=== PATIENT | female | born 1975 | race American Indian/Alaskan Native ===

== ENCOUNTER 2017-03-24 09:26 | Emergency (ER) | payer BC ==
[2017-03-24 09:42] VITALS: BP 103/65; PULSE 79; RESP 16; TEMP 98.9; O2SAT 99
[2017-03-24] MEDS ORDERED: Sodium Chloride 0.9% 1,000 ML IV STA (09:50)
[2017-03-24 10:13] LABS: ADD MANUAL DIFF? NO
[2017-03-24 10:17] LABS: BASO # 0.01 K/mm3 (0.0-2.0); BASO % 0.3 % (0.0-3.0); EOS % 1.3 % (1.5-5.0); GRAN # 1.45 (1.4-6.5); GRAN % 47.3 % (50.0-68.0); HEMATOCRIT 37.6 % (36.0-48.0); LYMPH # 1.2 (1.2-3.4); LYMPH % 40.4 % (22.0-35.0); MEAN CELL VOLUME 91.7 fL (80.0-105.0); MEAN CORPUSCULAR HEMOGLOBIN 30.2 pg (25.0-35.0); MEAN PLATELET VOLUME 9.4 fl (7.0-11.0); MONO # 0.3 (0.1-0.6); MONO % 10.7 % (1.0-6.0); PLATELET COUNT 180 10^3/uL (120.0-450.0); RED CELL DISTRIBUTION WIDTH 13.1 % (11.5-14.5); WHITE BLOOD COUNT 3.1 10^3/ul (4.5-11.0)
--- NOTE | 2017-03-24 10:20 | ED PDOC ---
Arrival/HPI - General Chief Complaint: Abdominal Pain Time Seen by Provider: 03/24/17 09:48 Historian: Patient - History of Present Illness Narrative History of Present Illness (Text): 03/24/17 10:18 42yo female with no PMHx who present complaining of constant sharp RUQ/ epigastric abdominal pain x 4days. states pain is usually worse postprandial. Did not take any medication. Denies melena, hematmesis, nausea, vomiting, diarrhea, constipation, urinary symptoms, fever, chills, any other complaint. Past Medical History - Provider Review Nursing Documentation Reviewed: Yes - Psychiatric Hx Psychophysiologic Disorder: No Hx Substance Use: No - Surgical History Hx Section: Yes Family/Social History - Physician Review Nursing Documentation Reviewed: Yes Family/Social History: Unknown Family HX Smoking Status: Never Smoked Hx Alcohol Use: No Hx Substance Use: No Allergies/Home Meds Allergies/Adverse Reactions: Allergies No Known Allergies Allergy (Verified 03/24/17 09:38) Review of Systems - Physician Review All systems were reviewed & negative as marked: Yes - Review of Systems Constitutional: Normal Eyes: Normal ENT: Normal Respiratory: Normal Cardiovascular: Normal Gastrointestinal: Abdominal Pain. absent: Constipation, Diarrhea, Nausea, Vomiting, Hematochezia, Hematemesis Genitourinary Female: Normal Musculoskeletal: Normal Skin: Normal Neurological: Normal Endocrine: Normal Hemo/Lymphatic: Normal Psychiatric: Normal Physical Exam Vital Signs Reviewed: Yes Vital Signs Temp Pulse Resp BP Pulse Ox 03/24/17 09:41 98.9 F 79 16 103/65 99 Temperature: Afebrile Blood Pressure: Normal Pulse: Regular Respiratory Rate: Normal Appearance: Positive for: Well-Appearing, Non-Toxic, Comfortable Pain Distress: None Mental Status: Positive for: Alert and Oriented X 3 - Systems Exam Head: Present: Atraumatic, Normocephalic Pupils: Present: PERRL Extroacular Muscles: Present: EOMI Conjunctiva: Present: Normal Mouth: Present: Moist Mucous Membranes Neck: Present: Normal Range of Motion Respiratory/Chest: Present: Clear to Auscultation, Good Air Exchange. No: Respiratory Distress, Accessory Muscle Use Cardiovascular: Present: Regular Rate and Rhythm, Normal S1, S2. No: Murmurs Abdomen: Present: Tenderness (Epigastric tenderness), Normal Bowel Sounds ( Hyperactive on the epigastric region), Other (Soft). No: Distention, Peritoneal Signs, Rebound, Guarding, McBurney's Point Tender, Rovsing's Sign Present Back: Present: Normal Inspection Upper Extremity: Present: Normal Inspection. No: Cyanosis, Edema Lower Extremity: Present: Normal Inspection. No: Edema Neurological: Present: GCS=15, CN II-XII Intact, Speech Normal Skin: Present: Warm, Dry, Normal Color. No: Rashes Psychiatric: Present: Alert, Oriented x 3, Normal Insight, Normal Concentration Medical Decision Making ED Course and Treatment: 03/24/17 19:02 PT presented for stated history. On revaluation her pain improved with GI cock tail. Lab was unremarkable. She have UTI and was given Macrobid. Pt states she is currently under a lot of stress from her job and home. Gallbladder and panaceas US was negative. Result was DW the pt. she was DC home with Protonix and macrobid. Referred to her PMD/GI. TRT ED for any new or worsening symptoms. - Lab Interpretations Lab Results: 03/24/17 10:00 03/24/17 10:00 Lab Results 03/24/17 11:00: Urine Color Yellow, Urine Appearance Clear, Urine pH 6.0, Ur Specific [place] 1.025, Urine Protein 30 H, Urine Glucose (UA) Negative, Urine Ketones Negative, Urine Blood Small H, Urine Nitrate Positive H, Urine Bilirubin Negative, Urine Urobilinogen 1.0 H, Ur Leukocyte Esterase Moderate H, Urine RBC 5 - 10, Urine WBC 25 - 30, Ur Epithelial Cells 6 - 8, Amorphous Sediment Few, Urine Bacteria Many, Hyaline Casts 0 - 2, Urine Other [place] 03/24/17 10:00: Sodium 140, Potassium 3.8, Chloride 105, Carbon Dioxide 25, Anion Gap 14, BUN 10, Creatinine 0.9, Est GFR ( Amer) > 60, Est GFR (Non- Af Amer) > 60, Random Glucose 77, Calcium 8.8, Total Bilirubin 0.7, AST 22, ALT 22, Alkaline Phosphatase 42, Total Protein 7.5, Albumin 4.2, Globulin 3.3, Albumin/Globulin Ratio 1.3, Lipase 31 03/24/17 10:00: PT 11.4, INR 1.06, APTT 28.6 03/24/17 10:00: WBC 3.1 L, RBC 4.10, Hgb 12.4, Hct 37.6, MCV 91.7, MCH 30.2, MCHC 33.0, RDW 13.1, Plt Count 180, MPV 9.4, Gran % 47.3 L, Lymph % (Auto) 40.4 H, [place] % (Auto) 10.7 H, Eos % (Auto) 1.3 L, Baso % (Auto) 0.3, Gran # 1.45, Lymph # 1.2, [place] # 0.3, Eos # 0.0, Baso # 0.01 - RAD Interpretation Radiology Orders: 03/24/17 09:51 GALLBLADDER & PANCREAS [US] Stat - Medication Orders Current Medication Orders: Discontinued Medications Al Hydrox/Mg Hydrox/Simethicone (Maalox Plus 30 Ml) 30 ml PO STAT STA Stop: 03/24/17 11:36 Last Admin: 03/24/17 11:58 Dose: 30 ml Belladonna/Phenobarbital ( Elixir) 5 ml PO STAT STA Stop: 03/24/17 11:36 Last Admin: 03/24/17 11:57 Dose: 5 ml Famotidine (Pepcid) 20 mg IVP STAT STA Stop: 03/24/17 09:51 Last Admin: 03/24/17 10:09 Dose: 20 mg Sodium Chloride (Sodium Chloride 0.9%) 1,000 mls @ 1,000 mls/hr IV .Q1H STA Stop: 03/24/17 10:49 Last Admin: 03/24/17 10:09 Dose: 1,000 mls/hr Ketorolac Tromethamine (Toradol) 30 mg IVP STAT STA Stop: 03/24/17 09:53 Last Admin: 03/24/17 10:08 Dose: 30 mg Lidocaine HCl (Lidocaine 2% Viscous) 15 ml PO ONCE STA Stop: 03/24/17 11:36 Last Admin: 03/24/17 12:05 Dose: Not Given Non-Admin Reason: Patient Refused Nitrofurantoin Macrocrystals (Macrobid) 100 mg PO ONCE STA Stop: 03/24/17 11:35 Last Admin: 03/24/17 11:57 Dose: 100 mg Disposition/Present on Arrival - Present on Arrival Any Indicators Present on Arrival: No History of DVT/PE: No History of Uncontrolled Diabetes: No Urinary Catheter: No History of Decub. Ulcer: No History Surgical Site Infection Following: None - Disposition Have Diagnosis and Disposition been Completed?: Yes Diagnosis: UTI (urinary tract infection), Gastritis Disposition: HOME/ ROUTINE Disposition Time: 11:40 Patient Plan: Discharge Condition: STABLE Discharge Instructions (ExitCare): Gastritis (ED), Urinary Tract Infection in Women (ED) Additional Instructions: Avoid acidic foods Follow up with your Doctor/Sander Operator Return to ED for any new or worsening symptoms Prescriptions: Nitrofurantoin Macrocrystals [Macrobid] 100 mg PO BID #14 cap Pantoprazole Sodium [Protonix] 40 mg PO DAILY #15 tablet.dr Referrals: Melisa Riggs MD [Primary Care Provider] - Follow up with primary Robert Rose MD [Medical Doctor] - Follow up with primary Forms: WORK NOTE
[2017-03-24 10:26] LABS: ALB/GLOB RATIO 1.3 (1.1-1.8); ALKALINE PHOSPHATASE 42 U/L (38-133); ALT/SGPT 22 U/L (7-56); AST/SGOT 22 U/L (15-39); BILIRUBIN,TOTAL 0.7 mg/dL (0.2-1.3); BLOOD UREA NITROGEN 10 mg/dL (7-21); CALCIUM 8.8 mg/dL (8.4-10.5); CARBON DIOXIDE 25 mmol/L (21-33); CHLORIDE 105 mmol/L (98-107); GFR AFRICAN-AMERICAN > 60; GLUCOSE,RANDOM 77 mg/dL (70-110); LIPASE 31 U/L (23-300); POTASSIUM 3.8 mmol/L (3.6-5.0); SODIUM 140 mmol/L (132-148); TOTAL PROTEIN 7.5 g/dL (5.8-8.3)
[2017-03-24 10:38] LABS: INR 1.06 (0.93-1.08); PARTIAL THROMBOPLASTIN TIME 28.6 Seconds (23.7-30.8)
--- NOTE | 2017-03-24 10:40 | US ---
HISTORY: Epigastric/RUQ pain COMPARISON: None. TECHNIQUE: Sonographic evaluation of the right upper quadrant of the abdomen. FINDINGS: LIVER: Measures 12.5 cm in length. Normal echogenicity of the liver parenchyma. No mass. No intrahepatic bile duct dilatation. GALLBLADDER: Unremarkable. No gallstones. COMMON BILE DUCT: Measures 4.7 mm. No stones. No dilatation. PANCREAS: Unremarkable as visualized. No mass. No ductal dilatation. RIGHT KIDNEY: Measures 9.3 cm in length. Normal echogenicity. No calculus or solid mass. There is mild fullness in the renal pelvis. AORTA: No aneurysmal dilatation. IVC: Unremarkable. OTHER FINDINGS: None . IMPRESSION: No evidence of cholelithiasis or biliary dilatation. No nephrolithiasis
[2017-03-24 11:19] LABS: URINE BILIRUBIN NEGATIVE (NEGATIVE); URINE BLOOD SMALL (NEGATIVE); URINE GLUCOSE (UA) NEGATIVE (NEGATIVE); URINE KETONE NEGATIVE (NEGATIVE); URINE LEUKOCYTE ESTERASE MODERATE Leu/uL (NEGATIVE); URINE PROTEIN 30 mg/dL (<30 mg/dL)
[2017-03-24 11:22] LABS: URINE APPEARANCE CLEAR (CLEAR); URINE COLOR YELLOW (YELLOW)
[2017-03-24] MEDS ORDERED: Alum-Mag Hydrox-Simethicone Susp (30 mL) PO STA (11:35)
[2017-03-24] MEDS ORDERED: Atrop/Hyosc/Scopal/PB Elixir (120 ml) PO STA (11:35)
[2017-03-24 11:44] LABS: URINE BACTERIA MANY (NEG); URINE WBC 25 - 30 /hpf (0-6)
[2017-03-24 11:45] LABS: URINE AMORPHOUS SEDIMENT FEW
== END 2017-03-24 12:30 | disposition home or self-care (01) ==
LOC: ED 09:26
DX: N39.0 Urinary tract infection, site not specified (principal); K29.70 Gastritis, unspecified, without bleeding
CPT/HCPCS: 76705; 80053; 81001; 83690; 85025; 85610; 85730; 87086; 87181; 96361; 96374; 96375; 99283; J1885; J7040

== ENCOUNTER 2017-03-25 14:18 | Inpatient (IN) | payer BC ==
[2017-03-25] MEDS ORDERED: Iohexol 240 (50 ml) ONE (14:36)
--- NOTE | 2017-03-25 14:53 | ED PDOC ---
Arrival/HPI - General Chief Complaint: Abdominal Pain Time Seen by Provider: 03/25/17 14:25 Historian: Patient - History of Present Illness Narrative History of Present Illness (Text): 03/25/17 14:49 42yo female referred to ED by Dr. Riggs for admission. Patient was seen here yesterday for epigastric abdominal pain and was treated for UTI . She reports that she is still having same epigastric pain. Saw Dr. Riggs today and was referred to ED for admission. Patient denies nausea, vomiting, diarrhea, constipation, melena, hematemesis, fever, chills, chest pain, any other complaint. Past Medical History - Provider Review Nursing Documentation Reviewed: Yes - Gastrointestinal Hx Gastrointestinal Disorders: Yes Hx Gastritis: Yes - Psychiatric Hx Psychophysiologic Disorder: No Hx Substance Use: No - Surgical History Hx Section: Yes Family/Social History - Physician Review Nursing Documentation Reviewed: Yes Family/Social History: Unknown Family HX Smoking Status: Never Smoked Hx Alcohol Use: No Hx Substance Use: No Allergies/Home Meds Allergies/Adverse Reactions: Allergies No Known Allergies Allergy (Verified 03/24/17 09:38) Review of Systems - Physician Review All systems were reviewed & negative as marked: Yes - Review of Systems Constitutional: Normal Eyes: Normal ENT: Normal Respiratory: Normal Cardiovascular: Normal Gastrointestinal: Abdominal Pain. absent: Constipation, Diarrhea, Nausea, Vomiting, Hematochezia, Hematemesis Genitourinary Female: Normal Musculoskeletal: Normal Skin: Normal Neurological: Normal Endocrine: Normal Hemo/Lymphatic: Normal Psychiatric: Normal Physical Exam Vital Signs Reviewed: Yes Vital Signs Temp Pulse Resp BP Pulse Ox 03/25/17 17:05 72 17 110/61 99 03/25/17 16:01 70 18 100/71 100 03/25/17 15:04 69 18 98/58 L 100 03/25/17 14:28 98.0 F 74 18 89/53 L 100 Temperature: Afebrile Blood Pressure: Normal Pulse: Regular Respiratory Rate: Normal Appearance: Positive for: Well-Appearing, Non-Toxic, Comfortable Pain Distress: None Mental Status: Positive for: Alert and Oriented X 3 - Systems Exam Head: Present: Atraumatic, Normocephalic Pupils: Present: PERRL Extroacular Muscles: Present: EOMI Conjunctiva: Present: Normal Mouth: Present: Moist Mucous Membranes Neck: Present: Normal Range of Motion Respiratory/Chest: Present: Clear to Auscultation, Good Air Exchange. No: Respiratory Distress, Accessory Muscle Use Cardiovascular: Present: Regular Rate and Rhythm, Normal S1, S2. No: Murmurs Abdomen: Present: Tenderness, Normal Bowel Sounds, Other (Soft). No: Distention , Peritoneal Signs, Rebound, Guarding, McBurney's Point Tender, Rovsing's Sign Present Back: Present: Normal Inspection Upper Extremity: Present: Normal Inspection. No: Cyanosis, Edema Lower Extremity: Present: Normal Inspection. No: Edema Neurological: Present: GCS=15, CN II-XII Intact, Speech Normal Skin: Present: Warm, Dry, Normal Color. No: Rashes Psychiatric: Present: Alert, Oriented x 3, Normal Insight, Normal Concentration Medical Decision Making ED Course and Treatment: 03/25/17 20:28 Pt present to ED for stated history. Her pain improved in ED with medication. Lab was unremarkable. PT have UTI, like was noted yesteday. Susan ordered Abdominal CT 03/25/17 20:30 IMPRESSION: 3.7 cm right adnexal cystic structure, possibly ovarian cyst. Small adnexal and pelvic free fluid. Correlate clinically and recommend further evaluation with pelvic ultrasound. IUD. 6 mm nonobstructing left renal calculus. Additional tiny bilateral nonobstructing calculi. Moderate diffuse constipation. Result was DW the pt. Pt was placed on OBS for intractable abdominal pain and UTI. - Lab Interpretations Lab Results: 03/25/17 14:50 03/25/17 14:50 Lab Results 03/25/17 15:55: Urine Color Light yellow, Urine Appearance Clear, Urine pH 7.5, Ur Specific [place] 1.010, Urine Protein Negative, Urine Glucose (UA) Negative, Urine Ketones Negative, Urine Blood Large H, Urine Nitrate Positive H, Urine Bilirubin Negative, Urine Urobilinogen 0.2, Ur Leukocyte Esterase Small H, Urine RBC 5 - 10, Urine WBC 2 - 5, Ur Epithelial Cells 1 - 3, Urine Bacteria Large 03/25/17 14:50: Sodium 140, Potassium 3.9, Chloride 104, Carbon Dioxide 27, Anion Gap 13, BUN 12, Creatinine 0.8, Est GFR ( Amer) > 60, Est GFR (Non- Af Amer) > 60, Random Glucose 67 L, Calcium 9.1, Total Bilirubin 0.6, AST 30, ALT 20, Alkaline Phosphatase 41, Lactate Dehydrogenase 363, Total Creatine Kinase 77, Troponin I < 0.01, Total Protein 7.4, Albumin 4.1, Globulin 3.3, Albumin/Globulin Ratio 1.2, Lipase 41 03/25/17 14:50: PT 11.0, INR 1.02, APTT 27.1 03/25/17 14:50: WBC 4.9 D, RBC 4.10, Hgb 12.3, Hct 37.6, MCV 91.7, MCH 30.0, MCHC 32.7, RDW 13.0, Plt Count 193, MPV 9.6, Gran % 60.7, Lymph % (Auto) 31.1, [place] % (Auto) 7.2 H, Eos % (Auto) 0.8 L, Baso % (Auto) 0.2, Gran # 2.97, Lymph # 1.5, [place] # 0.4, Eos # 0.0, Baso # 0.01 - RAD Interpretation Radiology Orders: 03/25/17 14:32 ABD PELVIS PO & IV CONTRAST [CT] Stat - Medication Orders Current Medication Orders: Hydromorphone HCl (Dilaudid) 0.5 mg IVP Q4H PRN PRN Reason: Pain, Mild (1-3) Ceftriaxone Sodium (Rocephin 1 Gram Ivpb) 100 mls @ 100 mls/hr IVPB DAILY DESTINY PRN Reason: Protocol Pantoprazole Sodium (Protonix Inj) 40 mg IVP DAILY DESTINY Discontinued Medications Famotidine (Pepcid) 20 mg IVP STAT STA Stop: 03/25/17 14:57 Last Admin: 03/25/17 15:09 Dose: 20 mg Hydromorphone HCl (Dilaudid) 1 mg IVP STAT STA Stop: 03/25/17 15:59 Last Admin: 03/25/17 17:07 Dose: 1 mg Levofloxacin/Dextrose (Levaquin 500mg) 500 mg in 100 mls @ 100 mls/hr IVPB STAT STA Stop: 03/25/17 20:15 Iohexol (Omnipaque 240 (50 Ml)) Confirm Administered Dose 50 ml .ROUTE .[facility] ONE Stop: 03/25/17 14:37 Iohexol (Omnipaque 350 100 Ml) Confirm Administered Dose 350 mg .ROUTE .[facility] ONE Stop: 03/25/17 16:33 Morphine Sulfate (Morphine) 4 mg IVP STAT STA Stop: 03/25/17 14:57 Last Admin: 03/25/17 15:10 Dose: 4 mg Disposition/Present on Arrival - Present on Arrival Any Indicators Present on Arrival: No History of DVT/PE: No History of Uncontrolled Diabetes: No Urinary Catheter: No History of Decub. Ulcer: No History Surgical Site Infection Following: None - Disposition Have Diagnosis and Disposition been Completed?: Yes Diagnosis: Renal colic, UTI (urinary tract infection), Abdominal pain Disposition: HOSPITALIZED Disposition Time: 18:50 Patient Problems: Current Active Problems Problem Status Onset Abdominal pain Acute Renal colic Acute UTI (urinary tract infection) Acute Condition: FAIR
[2017-03-25] MEDS ORDERED: Morphine 4 mg/ml ISec IVP STA (14:56)
[2017-03-25 15:06] LABS: ADD MANUAL DIFF? NO
[2017-03-25 15:10] LABS: BASO # 0.01 K/mm3 (0.0-2.0); BASO % 0.2 % (0.0-3.0); EOS % 0.8 % (1.5-5.0); GRAN # 2.97 (1.4-6.5); GRAN % 60.7 % (50.0-68.0); HEMATOCRIT 37.6 % (36.0-48.0); LYMPH # 1.5 (1.2-3.4); LYMPH % 31.1 % (22.0-35.0); MEAN CELL VOLUME 91.7 fL (80.0-105.0); MEAN CORPUSCULAR HGB CONC 32.7 g/dl (31.0-37.0); MEAN PLATELET VOLUME 9.6 fl (7.0-11.0); MONO # 0.4 (0.1-0.6); MONO % 7.2 % (1.0-6.0); PLATELET COUNT 193 10^3/uL (120.0-450.0); WHITE BLOOD COUNT 4.9 10^3/ul (4.5-11.0)
[2017-03-25 15:19] LABS: INR 1.02 (0.93-1.08); PARTIAL THROMBOPLASTIN TIME 27.1 Seconds (23.7-30.8)
[2017-03-25 15:25] LABS: ALB/GLOB RATIO 1.2 (1.1-1.8); ALKALINE PHOSPHATASE 41 U/L (38-133); ALT/SGPT 20 U/L (7-56); AST/SGOT 30 U/L (15-39); BILIRUBIN,TOTAL 0.6 mg/dL (0.2-1.3); BLOOD UREA NITROGEN 12 mg/dL (7-21); CALCIUM 9.1 mg/dL (8.4-10.5); CARBON DIOXIDE 27 mmol/L (21-33); CHLORIDE 104 mmol/L (98-107); GFR AFRICAN-AMERICAN > 60; GLUCOSE,RANDOM 67 mg/dL (70-110); LIPASE 41 U/L (23-300); POTASSIUM 3.9 mmol/L (3.6-5.0); SODIUM 140 mmol/L (132-148); TOTAL PROTEIN 7.4 g/dL (5.8-8.3)
[2017-03-25 15:37] LABS: TROPONIN I < 0.01 ng/mL
[2017-03-25] MEDS ORDERED: HYDROmorphone 1 mg/ml ISec IVP STA (15:58)
[2017-03-25] MEDS ORDERED: Iohexol 350 MG/100 ML VIAL ONE (16:32)
[2017-03-25 16:36] LABS: PH,URINE 7.5 (4.7-8.0); URINE BILIRUBIN NEGATIVE (NEGATIVE); URINE BLOOD LARGE (NEGATIVE); URINE GLUCOSE (UA) NEGATIVE (NEGATIVE); URINE KETONE NEGATIVE (NEGATIVE); URINE LEUKOCYTE ESTERASE SMALL Leu/uL (NEGATIVE); URINE PROTEIN NEGATIVE mg/dL (<30 mg/dL); URINE UROBILINOGEN 0.2 E.U./dL (<1 E.U./dL)
[2017-03-25 16:42] LABS: URINE APPEARANCE CLEAR (CLEAR); URINE COLOR LIGHT YELLOW (YELLOW)
[2017-03-25 17:15] LABS: URINE BACTERIA LARGE (NEG)
--- NOTE | 2017-03-25 18:25 | CT ---
PROCEDURE: CT Abdomen and Pelvis with oral and IV contrast. HISTORY: abdominal pain COMPARISON: Gallbladder ultrasound performed 03/24/17 TECHNIQUE: Contiguous axial images of the abdomen and pelvis. Oral and IV contrast was administered. Coronal and Sagittal reformats generated and reviewed. Contrast dose: 100 mL Omnipaque 350 Radiation dose: Total exam DLP = 328.17 mGy-cm. This CT exam was performed using one or more of the following dose reduction techniques: Automated exposure control, adjustment of the mA and/or kV according to patient size, and/or use of iterative reconstruction technique. FINDINGS: LOWER THORAX: No visible consolidation, pleural effusion, or pneumothorax. LIVER: Unremarkable. GALLBLADDER AND BILE DUCTS: Unremarkable. PANCREAS: Unremarkable. SPLEEN: Unremarkable. ADRENALS: Unremarkable. KIDNEYS AND URETERS: The kidneys enhance symmetrically. No hydronephrosis or obstructing renal calculus. Nonobstructing 6 mm left renal calculus. Additional tiny bilateral nonobstructing calculi. BLADDER: Distended urinary bladder appears grossly unremarkable. REPRODUCTIVE: Uterus is present. IUD. 3.7 cm cystic structure in the right at adnexa presumed to reflect a large ovarian cyst. Evidence of small adnexal fluid. APPENDIX: The appendix is not definitively seen. No secondary signs of acute appendicitis. BOWEL: The stomach is incompletely distended. The bowel loops appear within normal limits of caliber without evidence of intestinal obstruction. Moderate diffuse constipation. PERITONEUM: Small pelvic free fluid. No definite free air. LYMPH NODES: No bulky lymphadenopathy identified. VASCULATURE: No aortic aneurysm. BONES: No acute osseous abnormality is detected. OTHER FINDINGS: None. IMPRESSION: 3.7 cm right adnexal cystic structure, possibly ovarian cyst. Small adnexal and pelvic free fluid. Correlate clinically and recommend further evaluation with pelvic ultrasound. IUD. 6 mm nonobstructing left renal calculus. Additional tiny bilateral nonobstructing calculi. Moderate diffuse constipation.
[2017-03-25] MEDS ORDERED: levoFLOXacin 500 mg in D5W 500 MG/100 ML BAG IVPB STA (19:16)
[2017-03-25] MEDS: Sodium Chloride 0.9% 1,000 ML IV SCH (20:41)
[2017-03-26] MEDS: Sodium Chloride 0.9% 1,000 ML IV SCH (06:13)
[2017-03-26] MEDS: HYDROmorphone 0.5 mg/0.5 ml ISec IVP PRN ×5 (06:16→22:44)
[2017-03-26] MEDS: cefTRIAXone 1 gm 1 GM/100 ML BAG IVPB SCH (10:11)
--- NOTE | 2017-03-26 19:55 | HP ---
CHIEF COMPLAINT: Abdominal pain in epigastric area. HISTORY OF PRESENT ILLNESS: This is a 42-year-old female, my private patient, was seen in the Emergency Room 2-3 days ago for abdominal pain. Medicine was given, but was not helping. Came in my office for epigastric pain. The patient took antibiotics and proton pump inhibitors that were prescribed by the ER. She reports that she is still having the same epigastric pain. The patient denies any nausea, vomiting, diarrhea, constipation. No melena, hematuria or hematochezia. No fever, no chills. No headache, no dizziness. PAST MEDICAL HISTORY: Gastritis, FAMILY HISTORY: Father and mother noncontributory. HABITS: Never smoked, no drugs, no ethanol. ALLERGIES: The patient is not allergic to any medications. REVIEW OF SYSTEMS: The patient is seen and examined on the bedside, having epigastric pain. No shortness of breath, no fever, no chills. No constipation , diarrhea, nausea, vomiting, hematuria or hematochezia. Abdominal pain in the epigastric area. PHYSICAL EXAMINATION: VITAL SIGNS: Temperature 98.7, pulse 77, blood pressure 109/62, respiratory rate 15. HEENT: Normocephalic, atraumatic. Eyes: PERRLA. Extraocular muscles intact. Conjunctivae clear. Nose patent. Mucous membranes moist. NECK: Supple. No carotid bruit, JVD or thyromegaly. CHEST: Bilaterally symmetrical. HEART: S1, S2 positive. LUNGS: Clear to auscultation. ABDOMEN: Soft. Bowel sounds positive. No organomegaly. EXTREMITIES: No edema, no cyanosis. NEUROLOGIC: The patient is awake, alert and moving all 4 extremities. No focal deficits. LABORATORY DATA: White blood cells 4.9, hemoglobin 12.3, hematocrit 37.6, platelets 193. Sodium 140, potassium 3.9, BUN 12, creatinine 0.8, glucose is 67. ASSESSMENT AND PLAN: The patient is a 42-year-old lady with hematuria, urinary tract infection, came with epigastric pain. CAT scan done shows a 3.7 cm right adnexal cystic structure, possible ovarian cyst, small adnexal and pelvic free fluid. Correlate clinically and recommending further evaluation with pelvic ultrasound. The patient has IUD, 6 mm nonobstructing left renal calculus, this is a tiny bilateral nonobstructing calculi. We admitted the patient. Consult called with Dr. Rose. Dilaudid given. Antibiotics started. The patient is getting IV fluid. Gastrointestinal and deep venous thrombosis prophylaxis. Repeat labs. We will follow up. Melisa Riggs MD cc: [id number] TT: 03/26/2017 19:54:10 jn MTDD
[2017-03-27] MEDS: Sodium Chloride 0.9% 1,000 ML IV SCH ×2 (06:59→15:49)
[2017-03-27 07:21] LABS: ADD MANUAL DIFF? NO
[2017-03-27 07:48] LABS: ALB/GLOB RATIO 1.1 (1.1-1.8); ALKALINE PHOSPHATASE 36 U/L (38-133); ALT/SGPT 21 U/L (7-56); AST/SGOT 19 U/L (15-39); BASO # 0.01 K/mm3 (0.0-2.0); BASO % 0.3 % (0.0-3.0); BILIRUBIN,TOTAL 0.8 mg/dL (0.2-1.3); BLOOD UREA NITROGEN 6 mg/dL (7-21); CALCIUM 7.9 mg/dL (8.4-10.5); CARBON DIOXIDE 23 mmol/L (21-33); CHLORIDE 107 mmol/L (98-107); EOS # 0.1 (0.0-0.7); EOS % 2.9 % (1.5-5.0); GFR AFRICAN-AMERICAN > 60; GLUCOSE,RANDOM 66 mg/dL (70-110); GRAN # 1.95 (1.4-6.5); HEMATOCRIT 32.8 % (36.0-48.0); LYMPH # 1.5 (1.2-3.4); LYMPH % 38.7 % (22.0-35.0); MEAN CELL VOLUME 90.9 fL (80.0-105.0); MEAN CORPUSCULAR HEMOGLOBIN 29.1 pg (25.0-35.0); MEAN PLATELET VOLUME 9.6 fl (7.0-11.0); MONO # 0.3 (0.1-0.6); MONO % 7.1 % (1.0-6.0); PLATELET COUNT 163 10^3/uL (120.0-450.0); POTASSIUM 3.7 mmol/L (3.6-5.0); RED CELL DISTRIBUTION WIDTH 12.9 % (11.5-14.5); SODIUM 138 mmol/L (132-148); TOTAL PROTEIN 5.9 g/dL (5.8-8.3); WHITE BLOOD COUNT 3.8 10^3/ul (4.5-11.0)
[2017-03-27] MEDS: HYDROmorphone 0.5 mg/0.5 ml ISec IVP PRN ×4 (08:04→20:11)
--- NOTE | 2017-03-27 08:44 | CON ---
DATE: 03/26/2017 This patient was seen and evaluated earlier. REASON FOR CONSULTATION: Epigastric abdominal pain. HISTORY OF PRESENT ILLNESS: This 42-year-old patient presented to the ER for complaints, was admitte d for complaints of abdominal pain, epigastric area worsening of the symptoms for about 3 days, worsening of symptoms. The patient was seen in the ER before. The patient is admitted for further evaluation. She describes the pain mainly in the epigastric area. In the ER, she was found to have urine nitrites positive and WBCs urine 2-5. The patient is clinically suspected to have urinary trac t infection. The patient is being treated for that. The patient still has pain in the epigastric ar ea. Her other past medical history is significant for . The patient has history of p lacement, . ALLERGIES: No known drug allergies. SOCIAL HISTORY: Denies smoking or alcohol. REVIEW OF SYSTEMS: Positive as above. Other systems reviewed. PHYSICAL EXAMINATION: GENERAL: The patient is lying on the bed, not in acute distress. VITAL SIGNS: Blood pressure is 109/62, pulse 77, afebrile, O2 saturation 100%. HEENT: Atraumatic, anicteric. NECK: Supple. HEART: S1, S2 heard. LUNGS: Bilateral air entry present. ABDOMEN: Soft. There is tenderness present in the epigastric area. No rebound or guarding. EXTREMITIES: No edema. No cyanosis. NEUROLOGIC: Alert, oriented, moves all the extremities. LABORATORY DATA: Hemoglobin 12.3, hematocrit 37.6, WBC 4.9, platelets 193. Chemistry is essentially unremarkable. Urinalysis as mentioned above. The patient had a CT scan of the abdomen and pelvis with p.o. contrast done, with p.o. and IV contras t done, found to have a 6 mm nonobstructing right renal calculus. Additionally, bilateral nonobstruc ting tiny calculus present and found to have also been constipated. The patient did have ultrasound scan done during the previous visit. Report negative for gallstones. IMPRESSION: This 42-year-old patient admitted with abdominal pain mainly in the epigastric area. Th e ultrasound showed no gallstones. CAT scan with p.o. and IV contrast revealed only the left renal c alculus. The likely cause for the abdominal pain should include peptic ulcer disease, erosive esopha gitis. Would recommend increase, high dose PPI. We will change the Protonix to twice daily . The patient would benefit from endoscopic evaluation. The patient will be started on clear liquid di et. Followup of the cultures. Thank you very much for allowing us to participate in the care of the patient. Robert Rose MD cc: [id number] TT: 03/27/2017 08:43:36 Confirmation # [id number] Dictation # [id number]
[2017-03-27] MEDS: cefTRIAXone 1 gm 1 GM/100 ML BAG IVPB SCH (09:25)
--- NOTE | 2017-03-27 16:16 | CON ---
DATE: 03/27/2017 CHIEF COMPLAINT: Abdominal pain. HISTORY OF PRESENT ILLNESS: This is a 42-year-old female who was seen in her room at [facility]. The patient reports 3-4 days prior to admission she began having pain in the epigastric are a. The pain became severe. The patient was given antiacid medications and antibiotics; however, the pain progressed and the patient was then sent to the ER where she was admitted. Pain mostly in the epigastric area, which radiates through to her back and in the last day has been traveling lower towa rds her pelvic region. Urologically, she denies any dysuria, urinary frequency, urgency or gross hem aturia. She denies any fever or chills. She denies any nausea or vomiting. Denies any diarrhea or constipation. She does report a history of having an IUD in place. PAST MEDICAL HISTORY: Significant for gastritis in the past. No diabetes or hypertension. MEDICATIONS: Currently include Dilaudid, Protonix, Rocephin, IV fluids, and Zofran. ALLERGIES: No known drug allergies. FAMILY HISTORY: Noncontributory. SOCIAL HISTORY: No smoking or ETOH use. PHYSICAL EXAMINATION: VITAL SIGNS: The patient is awake, alert, in no acute distress. She is afebrile. Temp 98.5, pulse 62, BP 110/70, respirations 18. NECK: Supple. There is no thyromegaly or adenopathy. CHEST: Reveals normal inspiratory effort. CARDIAC: Showed positive S1, S2. There is no peripheral edema noted. ABDOMEN: Soft. There is some mild epigastric tenderness. There is no rebound or guarding. There i s no distention. There is no palpable mass. There is no CVA tenderness. GENITOURINARY: Bladder is not palpably distended. EXTREMITIES: There is no cyanosis or edema. LABORATORY DATA: WBC count was 4.9, now down to 3.8; hemoglobin 10.5; hematocrit 32.8; BUN of 6 with a creatinine of 0.7; GFR greater than 60. Urinalysis showed large blood, positive nitrites, small l eukocyte esterase, 5-10 RBC, 2-5 WBC, 1-3 epithelial cells with large bacteria. Urine culture prelim inary shows gram-negative rods. RADIOLOGIC EXAMINATION: The patient had a CT scan of the abdomen and pelvis, which showed the kidney s to enhance symmetrically. There was no hydronephrosis or obstructing stones. There was a nonobstr ucting 6 mm left renal calculus and there were additional tiny bilateral nonobstructing calculi. Uri nary bladder appeared unremarkable. The uterus showed the presence of an IUD. There is a 3.7 cm cys tic structure at the right adnexa and there was a small amount of adnexal fluid. There was also mode rate diffuse constipation noted. IMPRESSION AND PLAN: This is a 42-year-old female with abdominal pain. Urologically, the patient do es have kidney stones. They did not appear to be obstructing. There is no evidence of any hydroneph rosis or ureteral calculus. It does not appear that her acute onset of pain has to do anything with renal colic. The patient does appear to have a urinary infection with gram-negative rods. She is be ing treated with IV antibiotics, which should cover this until the sensitivities are known. I would continue her on the Rocephin for now. Plan will be to obtain a KUB with obliques when the patient is feeling better. The patient will need outpatient urologic followup regarding the kidney stones as t he 6 mm stone likely will not pass spontaneously if it does come down. The cause of her acute sympto ms is most likely gynecologic in origin given the adnexal cyst and some free fluid. There is also po ssible there is a GI issue given her epigastric pain. Cystitis along with the ovarian cyst may be co ntributing overall to her pain and this should resolve with the fluids and antibiotics. The patient does not need any emergent urologic surgical procedure. I would continue her on IV fluids and antibi otics, obtain a KUB and patient can follow up in our office as an outpatient regarding her kidney sto brayden, once her acute pain issues have resolved. Thank you for allowing me to participate in the care of this patient. We will follow her with you. Renzo Falcon MD cc: [id number] TT: 03/27/2017 16:15:57 Confirmation # [id number] Dictation # [id number] mn
[2017-03-27] MEDS: Dextrose 5%/0.9% NS 1,000 ML IV SCH (16:39)
[2017-03-28] MEDS: Dextrose 5%/0.9% NS 1,000 ML IV SCH ×3 (00:51→21:00)
[2017-03-28] MEDS: HYDROmorphone 0.5 mg/0.5 ml ISec IVP PRN ×3 (03:52→16:18)
--- NOTE | 2017-03-28 07:47 | PN ---
DATE: 03/27/2017 The patient is a 42-year-old female. The patient was seen and examined on the bedside, still complaining about abdominal pain. According to her, 0.25 Dilaudid is for her pain and after meal, she was feeling nauseous and vomiting. We started her on Zoloft, increased her Dilaudid from 0.25 to 0.5. No fever, no chills. No headache, no dizziness. PHYSICAL EXAMINATION: VITAL SIGNS: Temperature 98.8, pulse 95, blood pressure 150/70, respiratory rate 18. HEENT: Head normocephalic, atraumatic. Eyes: PERRLA. Extraocular muscles intact. Conjunctivae clear. Nose patent. Mucous membranes moist. NECK: Supple. No carotid bruit, no JVD, no thyromegaly. CHEST: Bilaterally symmetrical. HEART: S1, S2 positive. LUNGS: Clear to auscultation. ABDOMEN: Soft. Bowel sounds positive. No organomegaly. EXTREMITIES: No edema, no cyanosis. NEUROLOGIC: The patient is awake, alert, moving all 4 extremities. No focal deficits. MEDICATIONS: Dextrose, NS, Dilaudid, Protonix, Rocephin, Zofran. LABORATORIES: White blood cells 3.8, hemoglobin 10.5, hematocrit 32.8, platelets 163. Sodium 138, potassium 3.7, BUN noted , creatinine 0.7, glucose 66, calcium 7.9. ASSESSMENT AND PLAN: The patient is a 42-year-old lady with leukopenia, anemia , hypocalcemia, hypoglycemia. The patient was getting normal saline. I changed it to dextro normal saline. Seen by Dr. Renzo Falcon and manager drive. The patient has history of gastritis. The patient has nephrolithiasis. According to manager drive, does not appear to be obstructing. No evidence of any hydronephrosis or hydroureter. It does not appear that her acute onset of pain has to do anything with the renal colic. The patient has urinary tract infection with gram-negative rods, getting IV antibiotics. According to urologist, continue Rocephin. Plan will be to get the KUB with obliques when the patient is feeling better. According to urologist, patient needs outpatient urology followup. Because stone is 6 mm, will not pass spontaneous , come down. The patient has adnexal cyst and some free fluid. We called gynecology consult. Cystitis along with ovarian cyst may be contributing overall to her pain and this should resolve with antibiotics. The patient does not need any emergent urological surgical procedure. Continue IV antibiotics, obtain KUB. Seen by Dr. Rose, GI, appreciated. Ultrasound shows no gallstones. Maybe patient has erosive gastritis or gastritis. Increase the proton pump inhibitor. Dr. Rose changed Protonix to twice a day and according to GI, maybe patient needs endoscopic evaluation. Gastrointestinal and deep venous thrombosis . Repeat labs. Will follow up. Melisa Riggs MD cc: [id number] TT: 03/28/2017 07:45:57 Confirmation # [id number] Dictation # [id number] MTDD
[2017-03-28] MEDS ORDERED: Propofol 10 mg/ml Inj (20 ML) ONE (09:54)
[2017-03-28] MEDS ORDERED: Sodium Chloride 0.9% 1,000 ML IV SCH (10:15)
[2017-03-28] MEDS: cefTRIAXone 1 gm 1 GM/100 ML BAG IVPB SCH (11:47)
--- NOTE | 2017-03-28 14:38 | CP.PCM.CON ---
History of Present Illness - History of Present Illness History of Present Illness: 41 y/o with irregular LMP due ot Mirena IUD x 4 years reports c/o of epigastric/mid abdominal pain last week starting with rest evaluated by PCP and sent to ER for further evaluation. pt was then diagnosed with UTI and also 6mm non obstructing renal calculus and was subseuqtenly foudn to have 3.7cm ovarian cyst. Pt reports epigastric pain continous which has bursts on sharp stabbing pain radiating to back, with no alleviating or exacebating factors. Pt states she underwent an endoscopy earlier today which was significant for gastritis. Pt denies any pelvic pain, vaginal discharge, itching, odor, heavy bleeding, cramping. Pt reports pain has been epigastric in nature and states had previous episodes a long time ago. Pt reports she receives regular pnc from naval engineer Dr Concetta gibbs last evluated in 01/2017. Pt also states she has a bartholins cyst which she usually gets an I+D done by naval engineer. Pt denies any fevers, chills, reports nause, no vomiting, denies CP, SOB, constipation, diarrhea. Pt reports the only relief she gets is by lieing still and upright. 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 surger, CxS x 2 FHX: denies hx of breast ovarian, uterine or colon cancer MEDS: Vitamins NKDA Review of Systems - Constitutional Constitutional: As Per HPI - EENT Eyes: As Per HPI Nose/Mouth/Throat: As Per HPI - Cardiovascular Cardiovascular: As Per HPI - Respiratory Respiratory: As Per HPI - Gastrointestinal Gastrointestinal: Abdominal Pain - Genitourinary Genitourinary: As Per HPI - Reproductive: Female Reproductive:Female: As Per HPI - Menstruation Menstruation: As Per HPI - Musculoskeletal Musculoskeletal: As Per HPI - Integumentary Integumentary: As Per HPI - Neurological Neurological: As Per HPI Past Patient History - Past Social History Smoking Status: Never Smoked Alcohol: None Drugs: Denies - HEMATOLOGICAL/ONCOLOGICAL Hx Blood Transfusions: No Hx Blood Transfusion Reaction: No - MUSCULOSKELETAL/RHEUMATOLOGICAL Hx Falls: No - GASTROINTESTINAL Hx Gastrointestinal Disorders: Yes - PSYCHIATRIC Hx Psychophysiologic Disorder: No - SURGICAL HISTORY Hx Surgeries: Yes - ANESTHESIA Hx Anesthesia Reactions: No Hx Malignant Hyperthermia: No Meds Allergies/Adverse Reactions: Allergies Allergy/AdvReac Type Severity Reaction Status Date / Time No Known Allergies Allergy Verified 03/24/17 09:38 - Medications Medications: Current Medications Hydromorphone HCl (Dilaudid) 0.5 mg IVP Q4H PRN PRN Reason: Pain, severe (8-10) Last Admin: 03/28/17 11:48 Dose: 0.5 mg Ceftriaxone Sodium (Rocephin 1 Gram Ivpb) 1 gm in 100 mls @ 100 mls/hr IVPB DAILY DESTINY PRN Reason: Protocol Last Admin: 03/28/17 11:47 Dose: 100 mls/hr Sodium Chloride (Sodium Chloride 0.9%) 1,000 mls @ 100 mls/hr IV .Q10H DESTINY Ondansetron HCl (Zofran Inj) 4 mg IVP Q6H PRN PRN Reason: Nausea/Vomiting Last Admin: 03/27/17 16:42 Dose: 4 mg Pantoprazole Sodium (Protonix Inj) 40 mg IVP Q12 DSETINY Last Admin: 03/28/17 11:48 Dose: 40 mg Physical Exam - Constitutional Appears: Well, Non-toxic - Head Exam Head Exam: ATRAUMATIC, NORMAL INSPECTION - Eye Exam Eye Exam: EOMI, Normal appearance, PERRL Pupil Exam: NORMAL ACCOMODATION - ENT Exam ENT Exam: Mucous Membranes Dry - Neck Exam Neck exam: Positive for: Normal Inspection - Respiratory Exam Respiratory Exam: Clear to Auscultation Bilateral, NORMAL BREATHING PATTERN - Cardiovascular Exam Cardiovascular Exam: +S1, +S2 - GI/Abdominal Exam GI & Abdominal Exam: Soft Additional comments: suprapubic tenderness, no guarding,no reboudn tenderness, no rigidity, +epigastric tenderness, ngetaive RUQ/murphs sign - Exam Additional comments: External Genitalia: no gross abnormalies Bladder; Slightly TTP Vagina: thick white discharge, no blood clots CerviX: no gross masses, non tender, no CMT, no IUD strings visulzied from cerical os Uterus; NOn tender, small, anterverted Andexa; Non tender b/l Anus: grossly normal Perienum: right sided barthlin 7 oclock 4cm, mobile, non tender, non draining - Extremities Exam Extremities exam: Positive for: normal inspection Results - Vital Signs Recent Vital Signs: Last Vital Signs Temp 98.4 F 03/28/17 10:39 Pulse 62 03/28/17 10:39 Resp 173 H 03/28/17 10:39 BP 123/68 03/28/17 10:39 Pulse Ox 99 03/28/17 10:39 - Labs Result Diagrams: 03/27/17 07:00 03/27/17 07:00 Labs: Laboratory Results - last 24 hr 03/27/17 03/27/17 03/27/17 16:26 17:53 21:46 POC Glucose (mg/dL) 65 95 104 03/28/17 08:14 POC Glucose (mg/dL) 94 Assessment & Plan (1) Abdominal pain Assessment and Plan: 1. Abdominal Pain: Epigastric s/p endoscopy, more concerning for gastritis, s/p GI, managment as per PCP Suprapubic pain c/w UTI continue with antibitocs, hydration encouraged 2. Ovarian cyst: US 3.7cm cyst, naval engineer exam essentially benign in regards to abdominal pain Currently stable, No acute naval engineer intervention required Recommend f/u repeat TUVS outpatient 6 week follow up 3. Bartholin Cyst: Pt advised I+D is temporary solution, can consider marsupilzation/ word cathether placement outpatient Can also consider trial of augmentin BID x 7 days with warm compresses 4. IUD: Mirena IUD 4/5 years, inplaced as per US Follow up routine checking/maintence 5. Vaginiits: Likley candidias 2/2 to antibiotcs, can consider Terazol 3 vaginal suppository qhs x 3 or Fluconazole 150mg po q x 1 when tolerating po 6. Nephrolithiasis 6mm non obstructing stone, s/p Urology. o/p management Thank you for allowing to participate in patient care. Patient advised can follow up with her naval engineer or me. Office details provided. Please be informed I was not notified of consult request, and was also not naval engineer university relations vice president For immediate naval engineer consultation should contact naval engineer university relations vice president, otherwise I am more than happy to provide assistance but request to be notified. Please feel free to contact me if any questions or concens Aida Doyle [id number] [phone] Status: Acute
--- NOTE | 2017-03-28 16:56 | US ---
HISTORY: pain COMPARISON: CT abdomen and pelvis with contrast performed 03/25/17 TECHNIQUE: Transabdominal pelvic ultrasound. The patient was called back for additional images. FINDINGS: UTERUS: Measures approximately 7.8 x 3.1 x 4.4 cm. ENDOMETRIUM: IUD, limited visualization appears grossly unremarkable ; CT performed 03/25/17 demonstrates IUD to better advantage. Additional views were obtained which appears to reflect the endometrium in satisfactory position. Trace fluid within the endometrium. CERVIX: Cervix length measures approximately 4.1 cm. RIGHT OVARY: Initial images were unsatisfactory and the patient was called back for additional imaging. Additional images were obtained which demonstrates right ovarian measurement at 4.0 x 3.2 x 3.0 cm. 3.3 x 2.4 x 2.9 cm suspected complex right ovarian cyst. Blood flow is demonstrated to the right ovary. Small right adnexal free fluid. LEFT OVARY: Measures 2.8 x 2.0 x 2.8 cm. Blood flow is demonstrated. FREE FLUID: Small pelvic free fluid. OTHER FINDINGS: None. IMPRESSION: IUD as above. Trace fluid within the endometrium. Complex appearing right ovarian cyst. Six week ultrasound follow-up recommended to assess for resolution. Small right adnexal fluid. Small pelvic free fluid.
[2017-03-28] MEDS: HYDROmorphone 1 mg/ml ISec IVP PRN (22:03)
[2017-03-29] MEDS: HYDROmorphone 1 mg/ml ISec IVP PRN ×3 (06:09→21:16)
[2017-03-29] MEDS: Dextrose 5%/0.9% NS 1,000 ML IV SCH ×2 (11:06→17:51)
[2017-03-29] MEDS: cefTRIAXone 1 gm 1 GM/100 ML BAG IVPB SCH (11:24)
--- NOTE | 2017-03-29 12:28 | US ---
PROCEDURE: Duplex ultrasound of the mesenteric arteries. HISTORY: Abdominal pain. Evaluate for mesenteric ischemia. PHYSICIAN(S): Laron Aguilar MD. TECHNIQUE: Duplex sonography with color-flow Doppler was used to evaluate limited segments of the abdominal aorta and proximal segments of the mesenteric arteries. FINDINGS: Visualization of the celiac axis and SMA is adequate. There appears to be a common origin to the celiac and SMA. On the grayscale images, the arteries appear widely patent without significant atherosclerotic plaque. The peak systolic velocity in the SMA origin is elevated however. 294 cm/second. This is consistent with 50-99 percent stenosis. The peak systolic velocity in the proximal celiac axis is normal 152 cm/second. The VINCE is not evaluated. IMPRESSION: 1. Elevated velocities at the origin of the SMA. However the vessel appears widely patent on the grayscale images. If clinical suspicion is high, additional imaging of the SMA origin can be obtained with a CTA, MRA, or conventional arteriogram. 2. Patent proximal celiac axis. 3. The VINCE is not visualized.
--- NOTE | 2017-03-29 16:04 | CP.PCM.PN ---
Subjective - Date & Time of Evaluation Date of Evaluation: 03/29/17 Time of Evaluation: 10:15 - Subjective Subjective: S&E earlier today at bedside.Abdominal pain decrease a little. Had abdominal doppler this am. reveal increase velocities at the origin of the SMA but vessel appear widely patent. celiac axis patent, VINCE not seen. No N/V, tolerated clear liquid. Had EGD yesterday found chronic gastritis and duodenitis w/bx. Objective - Vital Signs/Intake and Output Vital Signs (last 24 hours): Temp Pulse Resp BP Pulse Ox 98 F 55 L 17 94/61 L 99 03/29/17 09:33 03/29/17 09:33 03/29/17 09:33 03/29/17 09:33 03/29/17 09:33 Intake and Output: 03/29/17 03/29/17 06:59 18:59 Intake Total 780 800 Balance 780 800 - Medications Medications: Current Medications Fluconazole (Diflucan) 150 mg PO DAILY DESTINY PRN Reason: Protocol Last Admin: 03/29/17 11:17 Dose: 150 mg Hydromorphone HCl (Dilaudid) 1 mg IVP Q4 PRN PRN Reason: Pain, severe (8-10) Ceftriaxone Sodium (Rocephin 1 Gram Ivpb) 1 gm in 100 mls @ 100 mls/hr IVPB DAILY DESTINY PRN Reason: Protocol Last Admin: 03/29/17 11:24 Dose: 100 mls/hr Dextrose/Sodium Chloride (Dextrose 5%/0.9% Ns 1000 Ml) 1,000 mls @ 100 mls/hr IV .Q10H DESTINY Last Admin: 03/29/17 11:06 Dose: 100 mls/hr Lactulose (Enulose) 30 gm PO DAILY DESTINY Last Admin: 03/29/17 11:16 Dose: 30 gm Ondansetron HCl (Zofran Inj) 4 mg IVP Q6H PRN PRN Reason: Nausea/Vomiting Last Admin: 03/27/17 16:42 Dose: 4 mg Pantoprazole Sodium (Protonix Inj) 40 mg IVP Q12 DESTINY Last Admin: 03/29/17 11:15 Dose: 40 mg - Labs Labs: 03/27/17 07:00 03/27/17 07:00 PT 11.0 Seconds (9.9-11.8) 03/25/17 14:50 INR 1.02 (0.93-1.08) 03/25/17 14:50 APTT 27.1 Seconds (23.7-30.8) 03/25/17 14:50 - Constitutional Appears: No Acute Distress - Eye Exam Eye Exam: Normal appearance. absent: Scleral icterus - ENT Exam ENT Exam: Mucous Membranes Moist - Neck Exam Neck Exam: Normal Inspection - Respiratory Exam Respiratory Exam: Clear to Ausculation Bilateral, NORMAL BREATHING PATTERN. absent: Respiratory Distress - Cardiovascular Exam Cardiovascular Exam: +S1, +S2 - GI/Abdominal Exam GI & Abdominal Exam: Soft, Tenderness, Normal Bowel Sounds (diffuse mid abdomen) . 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 Rose
[2017-03-29 21:53] VITALS: O2SAT 100
--- NOTE | 2017-03-29 23:11 | CP.PCM.PN ---
Subjective - Date & Time of Evaluation Date of Evaluation: 03/29/17 Time of Evaluation: 23:10 - Subjective Subjective: S:Patient was seen at bedside. Because she requested benadryl for sleep. Has no other complaints now. Denies sob , chest pain, headache, abdominal pain. ROS:Negative except as mentioned above. O:VSS. Not in distress. LUNGS:Normal breathing pattern. NEURO: Speech normal. A:Adjustment insomnia. P:Benadryl as ordered. Objective - Vital Signs/Intake and Output Vital Signs (last 24 hours): Temp Pulse Resp BP Pulse Ox 98.5 F 56 L 18 112/67 100 03/29/17 16:00 03/29/17 16:00 03/29/17 16:00 03/29/17 16:00 03/29/17 16:00 Intake and Output: 03/29/17 03/30/17 18:59 06:59 Intake Total 800 840 Balance 800 840 - Medications Medications: Current Medications Fluconazole (Diflucan) 150 mg PO DAILY DESTINY PRN Reason: Protocol Last Admin: 03/29/17 11:17 Dose: 150 mg Hydromorphone HCl (Dilaudid) 1 mg IVP Q4 PRN PRN Reason: Pain, severe (8-10) Last Admin: 03/29/17 21:16 Dose: 1 mg Ceftriaxone Sodium (Rocephin 1 Gram Ivpb) 1 gm in 100 mls @ 100 mls/hr IVPB DAILY DESTINY PRN Reason: Protocol Last Admin: 03/29/17 11:24 Dose: 100 mls/hr Dextrose/Sodium Chloride (Dextrose 5%/0.9% Ns 1000 Ml) 1,000 mls @ 100 mls/hr IV .Q10H DESTINY Last Admin: 03/29/17 17:51 Dose: 100 mls/hr Lactulose (Enulose) 30 gm PO DAILY DESTINY Last Admin: 03/29/17 11:16 Dose: 30 gm Ondansetron HCl (Zofran Inj) 4 mg IVP Q6H PRN PRN Reason: Nausea/Vomiting Last Admin: 03/27/17 16:42 Dose: 4 mg Pantoprazole Sodium (Protonix Inj) 40 mg IVP Q12 DESTINY Last Admin: 03/29/17 21:16 Dose: 40 mg - Labs Labs: 03/27/17 07:00 03/27/17 07:00 PT 11.0 Seconds (9.9-11.8) 03/25/17 14:50 INR 1.02 (0.93-1.08) 03/25/17 14:50 APTT 27.1 Seconds (23.7-30.8) 03/25/17 14:50
[2017-03-30] MEDS: Dextrose 5%/0.9% NS 1,000 ML IV SCH (05:24)
[2017-03-30 08:38] VITALS: BP 112/68; PULSE 60; RESP 20; TEMP 98.8
[2017-03-30] MEDS: HYDROmorphone 1 mg/ml ISec IVP PRN (09:47)
[2017-03-30] MEDS: cefTRIAXone 1 gm 1 GM/100 ML BAG IVPB SCH (09:48)
[2017-03-30] MEDS ORDERED: Tmp-Smz 800 mg-160 mg DS Tab PO SCH (11:45)
--- NOTE | 2017-03-30 12:09 | CP.PCM.PN ---
Subjective - Date & Time of Evaluation Date of Evaluation: 03/30/17 Time of Evaluation: 08:35 - Subjective Subjective: S&E this am, abdominal pain better. HAd BM, no melena or BRBPR. Tolerating liquids. No N/V. No acute overnight events reported. Objective - Vital Signs/Intake and Output Vital Signs (last 24 hours): Temp Pulse Resp BP Pulse Ox 98.8 F 60 20 112/68 100 03/30/17 08:37 03/30/17 08:37 03/30/17 08:37 03/30/17 08:37 03/30/17 08:37 Intake and Output: 03/30/17 03/30/17 06:59 18:59 Intake Total 960 Balance 960 - Medications Medications: Current Medications Hydromorphone HCl (Dilaudid) 2 mg PO TID PRN PRN Reason: Pain, severe (8-10) Lactulose (Enulose) 30 gm PO DAILY [facility] Last Admin: 03/30/17 09:46 Dose: 30 gm Ondansetron HCl (Zofran Inj) 4 mg IVP Q6H PRN PRN Reason: Nausea/Vomiting Last Admin: 03/27/17 16:42 Dose: 4 mg Pantoprazole Sodium (Protonix Inj) 40 mg IVP Q12 DESTINY Last Admin: 03/30/17 09:47 Dose: 40 mg Trimethoprim/Sulfamethoxazole (Bactrim Ds Tab) 1 tab PO BID DESTINY PRN Reason: Protocol Stop: 04/04/17 11:46 - Labs Labs: 03/27/17 07:00 03/27/17 07:00 PT 11.0 Seconds (9.9-11.8) 03/25/17 14:50 INR 1.02 (0.93-1.08) 03/25/17 14:50 APTT 27.1 Seconds (23.7-30.8) 03/25/17 14:50 - Constitutional Appears: No Acute Distress - Head Exam Head Exam: NORMAL INSPECTION - Eye Exam Eye Exam: Normal appearance. absent: Scleral icterus - ENT Exam ENT Exam: Mucous Membranes Moist - Neck Exam Neck Exam: Normal Inspection - Respiratory Exam Respiratory Exam: Clear to Ausculation Bilateral, NORMAL BREATHING PATTERN. absent: Respiratory Distress - Cardiovascular Exam Cardiovascular Exam: +S1, +S2 - GI/Abdominal Exam GI & Abdominal Exam: Soft, Normal Bowel Sounds. absent: Guarding, Tenderness, Organomegaly, Rebound - Extremities Exam Extremities Exam: absent: Calf Tenderness, Pedal Edema - Neurological Exam Neurological Exam: Alert, Awake, Oriented x3 - Skin Skin Exam: Dry, Warm Assessment and Plan - Assessment and Plan (Free Text) Assessment: ASSESSMENT: Abdominal Pain, improved, s/p abdominal doppler:increase velocities at the origin of the SMA but vessel appear widely patent. celiac axis patent, VINCE not seen. 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 FU outpatient office 2-3 weeks. GI standpoint can dc home if tolerate solids. Discuss with SOLANGE Carson. Seen and discussed w/ Dr. Rose
== END 2017-03-30 17:20 | disposition home or self-care (01) | DRG 690 ==
LOC: ED 14:18 → ERH 18:53 → 3RNO 21:18 → OBSVTOIN 03-26 18:58
PROVIDERS: ADMIT Internal Medicine; ATTEND Internal Medicine
PROC: 0DB98ZX Excision of Duodenum, Via Natural or Artificial Opening Endoscopic, Diagnostic (ICD-10-PCS; 2017-03-28)
PROC: 0DB68ZX Excision of Stomach, Via Natural or Artificial Opening Endoscopic, Diagnostic (ICD-10-PCS; principal; 2017-03-28 09:30)
DX: N30.90 Cystitis, unspecified without hematuria (principal); N20.0 Calculus of kidney; K29.50 Unspecified chronic gastritis without bleeding; K29.80 Duodenitis without bleeding; N83.209 Unspecified ovarian cyst, unspecified side; N75.0 Cyst of Bartholin's gland; E16.2 Hypoglycemia, unspecified; D64.9 Anemia, unspecified; E83.51 Hypocalcemia; B96.89 Other specified bacterial agents as the cause of diseases classified elsewhere; F51.02 Adjustment insomnia; Z97.5 Presence of (intrauterine) contraceptive device